=== PATIENT | female | born 1970 | race Caucasian/White ===

== ENCOUNTER 2016-08-24 14:47 | Emergency (ER) | payer BC ==
[~2016-08-24 14:47] MED LIST: LIBRAX PO; LORTAB10 PO; PR25 PO; ZANAFLEX
== END 2016-08-24 15:51 | disposition home or self-care (01) ==
LOC: ER 14:47
DX: M54.16 Radiculopathy, lumbar region (principal); I10 Essential (primary) hypertension; F17.200 Nicotine dependence, unspecified, uncomplicated; Z90.49 Acquired absence of other specified parts of digestive tract; Z88.1 Allergy status to other antibiotic agents; Z88.8 Allergy status to other drugs, medicaments and biological substances; Z88.5 Allergy status to narcotic agent; Z79.899 Other long term (current) drug therapy
CPT/HCPCS: 96372; 99283; J1170; J2800; J2930